=== PATIENT | female | born 1975 | race Hispanic/Latino ===

== ENCOUNTER 2016-06-26 11:30 | Inpatient (IN) | payer MEDICAID ==
[~2016-06-26] VITALS: Ht 198.1 cm; Wt 100.3 kg
[~2016-06-26 11:30] MED LIST: ALPRAZOLAM0.5 MG PO
[2016-06-26 11:39] VITALS: BP 105/66; PULSE 74; RESP 16; O2SAT 96
[2016-06-26] MEDS ORDERED: LEVO25TA2 PO (11:57)
[2016-06-26 12:14] LABS: BASOPHILS % (AUTO) 0.3 % (0-3); EOSINOPHILS % (AUTO) 1.6 % (0-5); MONOCYTES % (AUTO) 5.6 % (4-12); NEUTROPHILS % (AUTO) 64.5 % (40-74); Platelet Count 246 bil/L (150-400)
--- NOTE | 2016-06-26 12:28 | ED.REPORT ---
HPI-General Illness Date of Service Jun 26, 2016 ED Provider: Dr. Ricci Pt is a healthy 41 y/o female w/ a hx of hypothyroid presenting to the ED c/o epigastric abdominal pain with radiation to the back onset 3 days ago. She had somewhat more alcohol the day prior to the onset of her pain than she normally has. She c/o associated nausea. Pt denies vomiting, diarrhea, fever, chills. She stopped taking her levothyroxine 1 month ago and has been experiencing lightheadedness and palpitations and subsequently restarted them and has been feeling better. She does not drink much alcohol. She denies illicit drug use. She denies out of country travel or sick contacts. Nursing Notes Stated Complaint: CHEST/ABDOMINAL PAIN,SHORTNESS OF BREATH Chief Complaint: Female Abdominal Pain Nursing Notes Reviewed: Yes Allergies: Coded Allergies: amoxicillin (Verified Allergy, Unknown, 04/25/15) Scheduled Levothyroxine (Synthroid) 25 Mcg Tablet 25 MCG PO DAILY Scheduled PRN Alprazolam (Alprazolam) 0.5 Mg Tablet 0.25-0.5 MG PO DAILY PRN PRN For Anxiety Ibuprofen (Ibuprofen) 800 Mg Tablet 800 MG PO TID PRN PRN Headache General Time Seen by MD: 13:51 Chief Complaint Abdominal pain Hx Obtained From: Patient Arrived By: Walk-in Sudden in Onset?: No Symptom Duration: Since onset Location: : Abdomen Quality: Painful Severity: Current: Moderate Severity: Maximum: Moderate Past Medical History Past Medical History Hypothyroid Hx headaches Past Surgical History none Family History noncontributory Smoking History Never Smoker Social History Alcohol Use: "Social" Drug Use: Denies drug use Other Social History: Good social support, Local resident Ambulatory Status Independent Review of Systems Full Review of Systems Constitutional: Denies: Chills, Fever Respiratory: Denies: Non-productive cough, Shortness of breath Cardiovascular: Reports: Palpitations, Denies: Chest pain, Dyspnea on exertion GI: Reports: Abdominal pain, Nausea, Denies: Constipation, Diarrhea, Vomiting Musculoskeletal: Reports: Back pain, Denies: Neck pain Neurologic: Reports: Lightheaded Complete sys rev & neg: except as marked. Physical Exam Vital Signs Vital Signs Date Time Temp Pulse Resp B/P Pulse Ox O2 Delivery O2 Flow Rate FiO2 06/26/16 14:51 36.3 60 16 110/74 97 Room Air 06/26/16 11:39 36.4 74 16 105/66 96 Room Air Initial VS: Reviewed, Vital signs normal Head / Eyes: Atraumatic, Normocephalic, PERRL ENT: Mucous membranes moist, Conjunctiva normal, No scleral icterus Neck: Supple, Full range of motion Respiratory: Breath sounds normal, Clear to auscultation, No respiratory distress Cardiovascular: Regular rate & rhythm, Heart sounds normal, Intact distal pulses Extremities: Vascular intact, Neuro intact, No swelling, No tenderness Skin: Warm, Dry, No cyanosis Neurologic: Alert, Oriented, Nonfocal Psychiatric: Mood/affect normal, Behavior normal, Normal thought content General/Constitutional: Awake, Alert, No acute distress, Cooperative, Not toxic appearing Abdomen: Atraumatic, Soft, No guarding, No rebound, No distention, No palpable mass Moderate tenderness of the LUQ and epigastrium with mild tenderness to the RUQ. No focal tenderness over gallbladder, no cvat, no lower quadrant tenderness Interpretation & Diagnostics Interpretation & Diagnostics: US abdomen: IMPRESSION: No gallstones are seen. The gallbladder demonstrates a normal sonographic appearance. No biliary dilatation is seen. Tenderness is noted by the principal associate within the region of the pancreas, which is consistent with the given history. Note: Concordant preliminary findings given by the principal associate upon the completion of the examination to Dr. Singh at 1545 [place] time on June 26, 2016. Dictated by: Luke Fan M.D. on 06/26/2016 at 15:03 Approved by: Luke Fan M.D. on 06/26/2016 at 15:05 Lab Results Interpretation Result Diagram: 06/26/16 1200 06/26/16 1200 Test 06/26/16 12:00 White Blood Count 6.3th/mm3 (3.8-10.1) Red Blood Count 4.90mil/mm3 (3.90-5.20) Hemoglobin 14.7g/dL (12.0-15.6) Hematocrit 44.6% (35.0-46.0) Mean Corpuscular Volume 91.0fL (81-100) Mean Corpuscular Hemoglobin 30.0pg (27.0-35.0) Mean Corpuscular Hemoglobin Concent 33.0% (32.0-37.0) Red Cell Distribution Width 13.2% (12.3-15.4) Platelet Count 246bil/L (150-400) Neutrophils (%) (Auto) 64.5% (40-74) Lymphocytes (%) (Auto) 27.8% (14-46) Monocytes (%) (Auto) 5.6% (4-12) Eosinophils (%) (Auto) 1.6% (0-5) Basophils (%) (Auto) 0.3% (0-3) Hold Urine Received (Received) Sodium Level 138mEq/L (134-144) Potassium Level 4.0mEq/L (3.5-5.2) Chloride Level 101mEq/L (97-108) Carbon Dioxide Level 22mmol/L (18-29) Blood Urea Nitrogen 7mg/dL (6-24) Creatinine 0.57mg/dL (0.57-1.00) Estimat Glomerular Filtration Rate 168mL/min (>59) Glucose Level 87mg/dL (60-99) Calcium Level 9.2mg/dL (8.5-10.1) Magnesium Level 2.0mg/dL (1.6-2.6) Total Bilirubin 0.8mg/dL (0.0-1.2) Aspartate Amino Transf (AST/SGOT) 19U/L (0-50) Alanine Aminotransferase (ALT/SGPT) 12U/L (0-32) Alkaline Phosphatase 57U/L (25-150) Total Protein 7.9g/dL (6.4-8.4) Albumin 4.4g/dL (3.4-5.0) Triglycerides Level 97mg/dL (0-149) Cholesterol Level 204mg/dL (100-199) LDL Cholesterol, Calculated 122.600mg/dL (0-99) VLDL Cholesterol 19.400mg/dL HDL Cholesterol 62mg/dL (>39) Cholesterol/HDL Ratio 3.29 (0.0-4.4) Lipase 343U/L (13-60) Lab Results Interpretation: Urine dip: trace leukocytes otherwise negative ECG Interpretation Time: 12:55 Interpreted by: ED physician Normal ECG Interpretation: Normal ECG w/ rate of... (62), Normal rate, Normal sinus rhythm, No acute ischemic changes, Normal QRS, Normal axis, Normal intervals, Adequate tracing Re-Eval/Medical Decision Source of Hx: Old records Time of Eval: 15:40 Re-Evaluation/Progress Note: Pt rechecked. Informed pt of need for admission. Pt understands and agrees with plan for admission. All questions addressed. Consultation : Referral / Consult Name: Abraham Galvan MD Consulted With: Hospitalist Call Returned at: 15:41 Clocksmith: Will see patient, Agrees with eval, Agrees with plan, Accepts admit Counseled Regarding: Diagnosis, Lab results, Need for admission Discharge & Departure Primary Impression: Acute pancreatitis Pancreatitis type: unspecified pancreatitis type Qualified Code: K85.9 - Acute pancreatitis, unspecified Disposition: ADMITTED TO HOSPITAL Discharge Condition All VS Reviewed: Yes Condition: Stable Referrals: Josselyn Lemus MD (PCP) Scribe Attestation Portions of this note were transcribed by Paulo Flores. I, Dr. Ricci personally performed the history, physical exam and medical decision-making; I reviewed and confirmed the accuracy of the information in the transcribed note. Signed by Immanuel rFaser, 06/26/16 - 1400 copies to: Josselyn Lemus MD, Shawna L MD Jun 26, 2016 12:28 PAULO FLORES Jun 26, 2016 12:30
[2016-06-26] MEDS ORDERED: 0.9% Sodium Chloride 1,000 ML IV ONE (14:15)
[2016-06-26] MEDS ORDERED: Ondansetron 2 mg/mL 2 mL Inj IVPUSH PRN (14:15)
[2016-06-26] MEDS ORDERED: HYDROmorphone 0.5 mg/0.5 mL iSecure Syringe IVPUSH PRN (14:15)
[2016-06-26 14:51] VITALS: BP 110/74; PULSE 60; RESP 16; O2SAT 97
[2016-06-26] MEDS ORDERED: ALPR0.5T8 PO (14:51)
[2016-06-26] MEDS ORDERED: IBUP800T28 PO (14:51)
--- NOTE | 2016-06-26 16:06 | DRSVH ---
PROCEDURE: US ABDOMEN INDICATIONS: pancreatitis. rule out gallstones TECHNIQUE: Real-time scanning was performed of the abdominal and retroperitoneal organs, with image documentatio n. COMPARISON: [facility] Ultrasound [facility], US, ABDOMEN SONOGRAM, 06/29/2009, 23:30. FINDINGS: Liver length: 16.19 cm Gallbladder Wall Thickness: 0.90 mm CHD: 4.70 mm CBD: 6.70 mm Spleen length: 7.90 cm Right kidney length: 11.30 cm Left kidney length: 11.70 cm Aorta(Proximal): 2.09 cm Aorta(Mid): 1.57 cm Aorta(Distal): 1.66 cm RCIA: 1.00 cm LCIA: 8.20 mm Liver: Liver is normal in size and homogeneous in echotexture. Gallbladder: No findings of gallstones or sludge are seen. The gallbladder wall is not thickened, m easuring 3 mm or less. No specific pericholecystic fluid is seen. The sonographic Velasco sign is ne gative. Biliary ducts: Intrahepatic bile ducts are non-dilated. Extrahepatic bile duct caliber is normal. Normal is 6-7 mm or less in diameter, or 10 mm or less post-cholecystectomy. Pancreas: Visualized portions of the pancreas are sonographically normal. Spleen: Spleen is normal in size and homogeneous in echotexture. Kidneys: Kidneys are normal in size and echotexture. No hydronephrosis or nephrolithiasis. No chago d masses. A prominent column of Cristo can be seen on the right. Aorta: Visualized aorta is normal in caliber at less than 3 cm. Iliacs: Proximal common iliac arteries are normal in caliber at less than 2.5 cm. IVC: Intrahepatic inferior vena cava is patent. Miscellaneous: No free abdominal fluid. Tenderness is noted by the pedodontist overlying the midline of the abdomen near the area of the panc reas. IMPRESSION: No gallstones are seen. The gallbladder demonstrates a normal sonographic appearance. No biliary dilatation is seen. Tenderness is noted by the pedodontist within the region of the pancreas, which is consistent with th e given history. Note: Concordant preliminary findings given by the pedodontist upon the completion of the examination to Dr. Singh at 1545 [place] time on June 26, 2016. Dictated by: Luke Fan M.D. on 06/26/2016 at 15:03 Approved by: Luke Fan M.D. on 06/26/2016 at 15:05
[2016-06-26 16:30] VITALS: BP 112/69; PULSE 66; RESP 20; O2SAT 99
--- NOTE | 2016-06-26 16:33 | PCM.HPMED ---
Subjective Date of Service Jun 26, 2016 Primary Provider: Admitting Physician: Abraham Galvan MD Primary Care Physician: Josselyn Lemus MD Attending Physician: Abraham Galvan MD Chief Complaint: Abdominal pain History of Present Illness: This is a 41 female with past medical history of migraine headache, hypothyroidism, anxiety disorder presented to the hospital complaining allowed to abdominal pain that has been going on for approximately 3-5 days. Patient steadied the he had some nausea but no vomiting. He denied chest pain or shortness of breath. She took some ibuprofen before for abdominal pain with minimal relief. She stated she was taking approximately 2 cup of latte daily and noticed that would exacerbate of abdominal pain but she added taking "2 big latte daily" is part of her daily routine . She denies alcohol/ . She stopped taking her levothyroxine 1 month ago and has been experiencing lightheadedness and palpitations and subsequently restarted them and has been feeling better. ER work up shows lipase 343 Review of Systems: Review of systems is pertinent for abdominal pain, nausea, vomiting as described in history of present illness, otherwise a comprehensive review x 10 points is negative Allergies Coded Allergies: amoxicillin (Verified Allergy, Unknown, 04/25/15) Home Medications Scheduled Levothyroxine (Synthroid) 25 Mcg Tablet 25 MCG PO DAILY Scheduled PRN Alprazolam (Alprazolam) 0.5 Mg Tablet 0.25-0.5 MG PO DAILY PRN PRN For Anxiety Ibuprofen (Ibuprofen) 800 Mg Tablet 800 MG PO TID PRN PRN Headache PMH Hypothyroid Hx headaches Obesity Surgical History None Family History Family history reviewed and is noncontributory to present illness Social History Hx Alcohol Use: Yes ("social") Hx Substance Use: No Hx Tobacco Use: No Smoking Status: Never Smoker Exam Vital Signs Vital Sign - Last Date Time Temp Pulse Resp B/P Pulse Ox O2 Delivery O2 Flow Rate FiO2 06/26/16 14:51 36.3 60 16 110/74 97 Room Air Exam General/Constitutional: Overweight female, in bed comfortably. No acute distress HEENT: Atraumatic, Normocephalic, PERRL, sclerae is anicteric Mouth: Moist oropharyngeal mucosa Neck: Supple, Full range of motion, trachea is midline. No JVD Chest: Atraumatic, No respiratory distress, No retractions, No chest tenderness all deformity Lungs : Clear to auscultation bilaterally . No wheezing Cardiovascular: S1, S2, regular rate and rhythm, no gallop, no murmur Abdomen: Soft . Moderately tender on deep palpation at epigastric area. Velasco sign negative, No palpable mass Extremities: 1+ edema bilaterally, no cyanosis, no tenderness Skin: Warm, Dry, No cyanosis, no rash, no ulcers Neurologic: Alert, Oriented, grossly non focal Psychiatric: Mood/affect normal, Behavior normal, Normal thought content Lab and Diagnostics Result Diagram: 06/26/16 1200 06/26/16 1200 X-Rays, CTs and MRIs Abdominal ultrasound reviewed report noted : No gallstones are seen. The gallbladder demonstrates a normal sonographic appearance. No biliary dilatation is seen. Tenderness is noted by the postal service sectional center manager within the region of the pancreas, which is consistent with the given history. Assessment & Plan 1. Acute pancreatis Clinic medical problems Obesity Hypothyroidism Migraine Plan : Clear liquid diet and has tolerated. Zofran 4 mg IV every 6 hours as needed for nausea or vomiting Morphine sulfate 2 mg IV every 4 hours when necessary for pain. Normal saline 100 ml/hr for hydration. Patient denies and alcohol use. Her medication is levothyroxine, alprazolam, Ibuprofen and sporadic use of Vicodin/Percocet for migraine. Triglycerides are WNL and US is negative for gallstone. CT scan pending . She may need MRCP . Consider GI consult if ct negative Parental DVT prophylaxis. Pain Evaluation: Adequate Pain Control GI Prophylaxis: Proton Pump Inhibitor VTE Prophylaxis: Sub-Q Heparin (Unfractionated) Resuscitation Status: CPR: Attempt Resuscitation Time spent 55 minutes Abraham Galvan MD Jun 26, 2016 16:33
[2016-06-26] MEDS: 0.9% Sodium Chloride 1,000 ML IV SCH (16:38)
[2016-06-26] MEDS: Heparin 5,000 Unit/mL Inj SUBQ SCH (18:33)
[2016-06-26 21:50] VITALS: BP 108/70; PULSE 62; RESP 17; O2SAT 97
[2016-06-27] MEDS: Heparin 5,000 Unit/mL Inj SUBQ SCH ×3 (01:13→17:02)
[2016-06-27 02:01] VITALS: BP 103/67; PULSE 64; RESP 16; O2SAT 97
[2016-06-27] MEDS: 0.9% Sodium Chloride 1,000 ML IV SCH ×2 (02:28→12:33)
[2016-06-27 06:05] VITALS: BP 103/68; PULSE 58; RESP 16; O2SAT 100
[2016-06-27 07:57] LABS: BASOPHILS % (AUTO) 0.4 % (0-3); MONOCYTES % (AUTO) 8.3 % (4-12); Mean Corpuscular Hemoglobin 30.3 pg (27.0-35.0); Mean Corpuscular Volume 92.9 fL (81-100); NEUTROPHILS % (AUTO) 51.8 % (40-74); Platelet Count 217 bil/L (150-400)
[2016-06-27] MEDS: Pantoprazole 4 mg/mL 10 mL Inj IVPUSH SCH (07:59)
[2016-06-27] MEDS ORDERED: Polyethylene Glycol (PEG) 17 Gm Powder PO PRN (08:50)
[2016-06-27] MEDS: Senna-Docusate 8.6-50 mg Tablet PO SCH (09:37)
--- NOTE | 2016-06-27 12:02 | DRSVH ---
PROCEDURE: CT ABDOMEN AND PELVIS WITH CONTRAST ([id number]) INDICATIONS: Acute pancreatitis. Possible abscess. TECHNIQUE: After the administration of oral and intravenous contrast, 5 mm thick sections acquired from the diap hragms to the symphysis. 5 mm thick coronal and sagittal reformats were performed. For radiation do se reduction, the following was used: automated exposure control, adjustment of mA and/or kV accordi ng to patient size. COMPARISON: None. FINDINGS: Image quality: Excellent. ABDOMEN: Lung bases: Lung bases are clear. Heart size is normal. Solid organs: Liver and spleen are normal in size and enhancement. Gallbladder is within normal engel its. Biliary system is non-dilated. Pancreas enhances normally. Minimal fluid/fat stranding within the right anterior pararenal space and at the posterior aspect of the pancreatic neck is present. No adrenal nodules. Kidneys are normal in size and enhancement, without hydronephrosis. Peritoneum and bowel: Stomach, small bowel, and colon loops are normal in caliber and wall thickness . No free fluid or air. Nodes and vessels: No retroperitoneal or mesenteric adenopathy. Aorta and inferior vena cava are no rmal in caliber. The appendix is normal. Miscellaneous: No ventral hernias. PELVIS: Genitourinary: Bladder wall thickness is normal. An intrauterine device is present. Miscellaneous: No inguinal hernias or adenopathy. Bones: No suspicious bony lesions. No vertebral body compression fractures. IMPRESSION: 1. Findings suggestive of mild groove pancreatitis. No peripancreatic abscess. 2. Normal appendix. Dictated by: Eleazar Hyde M.D. on 06/27/2016 at 11:58 Approved by: Eleazar Hyde M.D. on 06/27/2016 at 12:00
[2016-06-27] MEDS: HYDROmorphone 1 mg/mL Inj IVPUSH PRN ×2 (12:14→20:08)
[2016-06-27 13:45] VITALS: BP 111/68; PULSE 60; O2SAT 97
--- NOTE | 2016-06-27 15:37 | PCM.PNMED ---
Subjective Date of Service Jun 27, 2016 Subjective Patient with continued abdominal pain overnight, but in 5-6 out of 10 this morning. Asking for Dilaudid so the morphine. No shortness of breath or chest pain. Noted intermittent short, nonexertional atypical left-sided chest pain that occurred yesterday but not currently feeling any. Exam Vital Signs Vital Sign - Last Date Time Temp Pulse Resp B/P Pulse Ox O2 Delivery O2 Flow Rate FiO2 06/27/16 13:45 36.6 60 111/68 97 Room Air 06/27/16 06:05 16 Intake and Output 06/26/16 06/26/16 06/27/16 Cumulative From/Thru 15:00 23:00 07:00 06/26/16 11:39 - 06/27/16 06:05 Intake Total 1000 ml 1905 ml 2905 ml Balance 1000 ml 1905 ml 2905 ml Intake Oral 600 ml 600 ml IV Total 1000 ml 1305 ml 2305 ml # Voids 2 2 Exam General/Constitutional: Overweight female, in bed comfortably. No acute distress HEENT: Atraumatic, Normocephalic, PERRL, sclerae is anicteric Mouth: Moist oropharyngeal mucosa Neck: Supple, Full range of motion, trachea is midline. No JVD Chest: Atraumatic, No respiratory distress, No retractions, No chest tenderness all deformity Lungs : Clear to auscultation bilaterally . No wheezing Cardiovascular: S1, S2, regular rate and rhythm, no gallop, no murmur Abdomen: Soft . Moderately tender on deep palpation at epigastric area. Velasco sign negative, No palpable mass Extremities: 1+ edema bilaterally, no cyanosis, no tenderness Skin: Warm, Dry, No cyanosis, no rash, no ulcers Neurologic: Alert, Oriented, grossly non focal Psychiatric: Mood/affect normal, Behavior normal, Normal thought content IVs and Medications Medications Reviewed: Medications were reviewed in detail Lab and Diagnostics Result Diagram: 06/27/16 0740 06/27/16 0740 X-Rays, CTs and MRIs Abdominal ultrasound reviewed report noted : No gallstones are seen. The gallbladder demonstrates a normal sonographic appearance. No biliary dilatation is seen. Tenderness is noted by the radio presenter within the region of the pancreas, which is consistent with the given history. CT abdomen 06/27 IMPRESSION: 1. Findings suggestive of mild groove pancreatitis. No peripancreatic abscess. 2. Normal appendix. Dictated by: Eleazar Hyde M.D. on 06/27/2016 at 11:58 Assessment & Plan 1. Acute pancreatis Clinic medical problems Obesity Hypothyroidism Migraine Plan : Clear liquid diet and advance as tolerated Zofran 4 mg IV every 6 hours as needed for nausea or vomiting Morphine sulfate changed to Dilaudid per patient request, conservative dosing with continued bowel regimen Normal saline 100 ml/hr for hydration, plan for weaning IV fluids tomorrow Patient denies and alcohol use. Her medication is levothyroxine, alprazolam, Ibuprofen and sporadic use of Vicodin/Percocet for migraine. Triglycerides are WNL and US is negative for gallstone. CT scan as noted with mild pancreatitis but no evidence of abscess or pseudocyst Improving lipase, if fails to continue to improve with conservative management may consider MRCP . Consider GI consult Parental DVT prophylaxis. Pain Evaluation: Adequate Pain Control GI Prophylaxis: Proton Pump Inhibitor VTE Prophylaxis: Sub-Q Heparin (Unfractionated) Resuscitation Status: CPR: Attempt Resuscitation Time spent 40 minutes spent with evaluation and management Abraham Agarwal DO Jun 27, 2016 15:37
[2016-06-27 17:52] VITALS: BP 106/70; PULSE 70; RESP 16; O2SAT 100
[2016-06-27 21:59] VITALS: BP 118/75; PULSE 65; RESP 17; O2SAT 96
[2016-06-28] MEDS: 0.9% Sodium Chloride 1,000 ML IV SCH ×3 (00:25→20:14)
[2016-06-28] MEDS: Heparin 5,000 Unit/mL Inj SUBQ SCH ×3 (00:26→16:32)
[2016-06-28 02:05] VITALS: BP 112/69; PULSE 77; RESP 16; O2SAT 98
[2016-06-28 06:00] VITALS: BP 112/70; PULSE 74; RESP 16; O2SAT 97
[2016-06-28] MEDS: HYDROmorphone 1 mg/mL Inj IVPUSH PRN (08:24)
[2016-06-28] MEDS: Ondansetron 2 mg/mL 2 mL Inj IVPUSH PRN (08:24)
[2016-06-28] MEDS: Pantoprazole 4 mg/mL 10 mL Inj IVPUSH SCH (08:25)
[2016-06-28 08:40] LABS: BASOPHILS % (AUTO) 0.4 % (0-3); EOSINOPHILS % (AUTO) 3.1 % (0-5); MONOCYTES % (AUTO) 7.1 % (4-12); Mean Corpuscular Volume 93.3 fL (81-100); NEUTROPHILS % (AUTO) 55.7 % (40-74); Platelet Count 214 bil/L (150-400)
[2016-06-28] MEDS ORDERED: Magnesium Chloride SR 64 mg ER24 Tablet PO ONE (10:40)
[2016-06-28 11:06] VITALS: BP 106/72; PULSE 66; RESP 16; O2SAT 97
--- NOTE | 2016-06-28 14:47 | PCM.PNMED ---
Subjective Date of Service Jun 28, 2016 Subjective Patient seen this morning with a pain rated 6 out of 10. Had a little bit of loose stool after by mouth intake yesterday. No fevers or chills, no chest pain or shortness of breath. Mildly clinically improving Exam Vital Signs Vital Sign - Last Date Time Temp Pulse Resp B/P Pulse Ox O2 Delivery O2 Flow Rate FiO2 06/28/16 11:06 36.6 66 16 106/72 97 Room Air Intake and Output 06/27/16 06/27/16 06/28/16 Cumulative From/Thru 14:59 22:59 06:59 06/26/16 11:39 - 06/28/16 06:10 Intake Total 2788 ml 1620 ml 7313 ml Balance 2788 ml 1620 ml 7313 ml Intake Oral 1680 ml 600 ml 2880 ml IV Total 1108 ml 1020 ml 4433 ml # Voids 5 2 9 # Bowel Movements 1 2 3 Exam General/Constitutional: Overweight female, in bed comfortably. No acute distress Neck: Supple, Full range of motion, trachea is midline. No JVD Chest: Atraumatic, No respiratory distress, No retractions, No chest tenderness all deformity Lungs : Clear to auscultation bilaterally . No wheezing Cardiovascular: S1, S2, regular rate and rhythm, no gallop, no murmur Abdomen: Soft . Moderately tender on deep palpation at epigastric area. No peritoneal symptoms no guarding No palpable mass Extremities: 1+ edema bilaterally, no cyanosis, no tenderness Skin: Warm, Dry, No cyanosis, no rash, no ulcers Neurologic: Alert, Oriented, grossly non focal Psychiatric: Mood/affect normal, Behavior normal, Normal thought content IVs and Medications Medications Reviewed: Medications were reviewed in detail Lab and Diagnostics Result Diagram: 06/28/1681406/28/1615 X-Rays, CTs and MRIs Abdominal ultrasound reviewed report noted : No gallstones are seen. The gallbladder demonstrates a normal sonographic appearance. No biliary dilatation is seen. Tenderness is noted by the it software engineer within the region of the pancreas, which is consistent with the given history. CT abdomen 06/27 IMPRESSION: 1. Findings suggestive of mild groove pancreatitis. No peripancreatic abscess. 2. Normal appendix. Dictated by: Eleazar Hyde M.D. on 06/27/2016 at 11:58 Assessment & Plan 1. Acute pancreatitis Chronic medical problems Obesity Hypothyroidism Migraine Plan : Diet advance to full liquid today Zofran 4 mg IV every 6 hours as needed for nausea or vomiting Morphine sulfate changed to Dilaudid per patient request 06/27, today have decreased frequency of Dilaudid and added [place] to titrate down off of Dilaudid with continued bowel regimen Normal saline 100 ml/hr for hydration, plan for weaning IV fluids tomorrow Patient denies any illicit drug or alcohol use. Her medication is levothyroxine , alprazolam, Ibuprofen and sporadic use of Vicodin/Percocet for migraine. Triglycerides are WNL and US is negative for gallstone. CT scan as noted with mild pancreatitis but no evidence of abscess or pseudocyst Improving lipase, if fails to continue to improve with conservative management may consider MRCP . Consider GI consult Parental DVT prophylaxis. Pain Evaluation: Adequate Pain Control GI Prophylaxis: Proton Pump Inhibitor VTE Prophylaxis: Sub-Q Heparin (Unfractionated) Resuscitation Status: CPR: Attempt Resuscitation Time spent 35 minutes spent with evaluation and management Abraham Agarwal DO Jun 28, 2016 14:47
[2016-06-28] MEDS: HYDROcodone-APAP 10-325 mg PO PRN ×2 (15:25→20:20)
[2016-06-28] MEDS ORDERED: HYDROmorphone 1 mg/mL Inj IVPUSH PRN (16:30)
[2016-06-28 18:04] VITALS: BP 114/71; PULSE 60; RESP 16; O2SAT 98
[2016-06-28] MEDS ORDERED: diphenhydrAMINE 25 mg Capsule PO PRN (19:35)
[2016-06-28 22:00] VITALS: BP 110/72; PULSE 61; RESP 17; O2SAT 94
[2016-06-29] MEDS: Heparin 5,000 Unit/mL Inj SUBQ SCH ×3 (00:35→16:40)
[2016-06-29 02:05] VITALS: BP 100/65; PULSE 65; RESP 16; O2SAT 95
[2016-06-29] MEDS: 0.9% Sodium Chloride 1,000 ML IV SCH (04:57)
[2016-06-29 05:48] VITALS: BP 100/74; PULSE 74; RESP 16; O2SAT 98
[2016-06-29 06:41] LABS: BASOPHILS % (AUTO) 0.4 % (0-3); MONOCYTES % (AUTO) 9.6 % (4-12); Mean Corpuscular Volume 92.2 fL (81-100); NEUTROPHILS % (AUTO) 41.6 % (40-74); Platelet Count 196 bil/L (150-400)
[2016-06-29] MEDS: Pantoprazole 4 mg/mL 10 mL Inj IVPUSH SCH (07:42)
[2016-06-29] MEDS: Senna-Docusate 8.6-50 mg Tablet PO SCH (07:42)
--- NOTE | 2016-06-29 08:20 | PCM.PNMED ---
Subjective Date of Service Jun 29, 2016 Subjective abdom pain 4/10 this AM, reports am GO - chronic also with some sob/gasping during sleep. likely needs outpt sleep study - acetaminophen for GO this AM, stop IVF - adv to soft diet. hopefully home tomorrow. no sob/cp now Exam Vital Signs Vital Sign - Last Date Time Temp Pulse Resp B/P Pulse Ox O2 Delivery O2 Flow Rate FiO2 06/29/16 05:48 36.8 74 16 100/74 98 Room Air Intake and Output 06/28/16 06/28/16 06/29/16 Cumulative From/Thru 15:00 23:00 07:00 06/26/16 11:39 - 06/29/16 05:50 Intake Total 2054 ml 1183 ml 10496 ml Balance 2054 ml 1183 ml 09347 ml Intake Oral 993 ml 3873 ml IV Total 1061 ml 1183 ml 6677 ml # Voids 6 4 19 # Bowel Movements 3 Exam General/Constitutional: Overweight female, in bed comfortably. No acute distress Neck: Supple, Full range of motion, trachea is midline. No JVD Chest: Atraumatic, No respiratory distress, No retractions, No chest tenderness all deformity Lungs : Clear to auscultation bilaterally . No wheezing Cardiovascular: S1, S2, regular rate and rhythm, no gallop, no murmur Abdomen: Soft . Moderately tender on deep palpation at epigastric area. No peritoneal symptoms no guarding No palpable mass Extremities: 1+ edema bilaterally, no cyanosis, no tenderness Skin: Warm, Dry, No cyanosis, no rash, no ulcers Neurologic: Alert, Oriented, grossly non focal Psychiatric: Mood/affect normal, Behavior normal, Normal thought content IVs and Medications Medications Reviewed: Medications were reviewed in detail Lab and Diagnostics Result Diagram: 06/29/1662406/29/16624 X-Rays, CTs and MRIs Abdominal ultrasound reviewed report noted : No gallstones are seen. The gallbladder demonstrates a normal sonographic appearance. No biliary dilatation is seen. Tenderness is noted by the telephone worker within the region of the pancreas, which is consistent with the given history. CT abdomen 06/27 IMPRESSION: 1. Findings suggestive of mild groove pancreatitis. No peripancreatic abscess. 2. Normal appendix. Dictated by: Eleazar Hyde M.D. on 06/27/2016 at 11:58 Assessment & Plan 1. Acute pancreatitis - improving Chronic medical problems Obesity Hypothyroidism Migraine Plan : Diet advance to full liquid --> now to soft diet Zofran 4 mg IV every 6 hours as needed for nausea or vomiting Morphine sulfate changed to Dilaudid per patient request 06/27, today have decreased frequency of Dilaudid and added [place] to titrate down off of Dilaudid with continued bowel regimen added acetaminophen for GO this AM, also offer coffee. Please do not exceed 4g of acetaminophen daily Normal saline 100 ml/hr for hydration, dc today Patient denies any illicit drug or alcohol use. Her medication is levothyroxine , alprazolam, Ibuprofen and sporadic use of Vicodin/Percocet for migraine. Triglycerides are WNL and US is negative for gallstone. CT scan as noted with mild pancreatitis but no evidence of abscess or pseudocyst Improving lipase, plan for home tomorrow Parental DVT prophylaxis. Pain Evaluation: Adequate Pain Control GI Prophylaxis: Proton Pump Inhibitor VTE Prophylaxis: Sub-Q Heparin (Unfractionated) Resuscitation Status: CPR: Attempt Resuscitation Time spent 35 minutes spent with eval and mgmt Abraham Aagrwal DO Jun 29, 2016 08:20
[2016-06-29] MEDS: HYDROcodone-APAP 10-325 mg PO PRN ×2 (11:46→16:44)
[2016-06-29 16:35] VITALS: BP 109/66; PULSE 65; RESP 20; O2SAT 97
[2016-06-29] MEDS: Ondansetron 2 mg/mL 2 mL Inj IVPUSH PRN (16:44)
[2016-06-29 20:30] VITALS: BP 100/63; PULSE 63; RESP 17; O2SAT 98
[2016-06-30] MEDS: Heparin 5,000 Unit/mL Inj SUBQ SCH ×2 (00:26→07:43)
[2016-06-30] MEDS: Ondansetron 2 mg/mL 2 mL Inj IVPUSH PRN (00:26)
[2016-06-30 00:30] VITALS: BP 111/71; PULSE 71; RESP 16; O2SAT 100
[2016-06-30] MEDS: HYDROcodone-APAP 10-325 mg PO PRN ×2 (00:59→11:19)
[2016-06-30 05:40] LABS: BASOPHILS % (AUTO) 0.3 % (0-3); MONOCYTES % (AUTO) 7.3 % (4-12); Mean Corpuscular Hemoglobin 30.1 pg (27.0-35.0); Mean Corpuscular Volume 91.5 fL (81-100); NEUTROPHILS % (AUTO) 49.7 % (40-74); Platelet Count 213 bil/L (150-400)
[2016-06-30 06:17] VITALS: BP 105/65; PULSE 75; RESP 16; O2SAT 100
[2016-06-30 06:18] VITALS: O2SAT 98
[2016-06-30] MEDS: Pantoprazole 4 mg/mL 10 mL Inj IVPUSH SCH (07:43)
[2016-06-30] MEDS: Senna-Docusate 8.6-50 mg Tablet PO SCH ×2 (07:50→11:20)
--- NOTE | 2016-06-30 11:18 | PCM.DIMED ---
Discharge Instructions Date of Service Jun 30, 2016 Dates of Hospitalization Jun 26, 2016 at 16:09 Discharge Diagnosis Discharge Diagnosis Acute pancreatitis, POA Chronic medical problems Obesity Hypothyroidism Migraine Medication Instructions Patient will be receiving a very short course of [place] 5 and a bowel regimen Test Results PROCEDURE: CT ABDOMEN AND PELVIS WITH CONTRAST (PNL-7102) INDICATIONS: Acute pancreatitis. Possible abscess. TECHNIQUE: After the administration of oral and intravenous contrast, 5 mm thick sections acquired from the diaphragms to the symphysis. 5 mm thick coronal and sagittal reformats were performed. For radiation dose reduction, the following was used : automated exposure control, adjustment of mA and/or kV according to patient size. COMPARISON: None. FINDINGS: Image quality: Excellent. ABDOMEN: Lung bases: Lung bases are clear. Heart size is normal. Solid organs: Liver and spleen are normal in size and enhancement. Gallbladder is within normal limits. Biliary system is non-dilated. Pancreas enhances normally. Minimal fluid/fat stranding within the right anterior pararenal space and at the posterior aspect of the pancreatic neck is present. No adrenal nodules. Kidneys are normal in size and enhancement, without hydronephrosis. Peritoneum and bowel: Stomach, small bowel, and colon loops are normal in caliber and wall thickness. No free fluid or air. Nodes and vessels: No retroperitoneal or mesenteric adenopathy. Aorta and inferior vena cava are normal in caliber. The appendix is normal. Miscellaneous: No ventral hernias. PELVIS: Genitourinary: Bladder wall thickness is normal. An intrauterine device is present. Miscellaneous: No inguinal hernias or adenopathy. Bones: No suspicious bony lesions. No vertebral body compression fractures. IMPRESSION: 1. Findings suggestive of mild groove pancreatitis. No peripancreatic abscess. 2. Normal appendix. Ultrasound IMPRESSION: No gallstones are seen. The gallbladder demonstrates a normal sonographic appearance. No biliary dilatation is seen. Tenderness is noted by the hogshead press operator within the region of the pancreas, which is consistent with the given history. Note: Concordant preliminary findings given by the hogshead press operator upon the completion of the examination to Dr. Singh at 15[address] [place] time on June 26, 2016. Dictated by: Luke Fan M.D. on 06/26/2016 at 15:03 Diet Low fat, Low Sodium Activity No restrictions Call your provider Fever or Chills, Shortness of breath, Bleeding, Vomitting, Excessive diarrhea Patient Instructions You have been diagnosed with acute pancreatitis and treated with hydration and nausea control including pain control. Please maintain a low-fat diet that have given you some pain medication, a very short course to be taken as needed for severe pain. You can also take acetaminophen or Tylenol up to 3000 mg daily as needed for pain control first before considering. Please realize that there is acetaminophen in the [place] 5 opioid tablet, there is 325 mg and so these be careful not to exceed more than 3000 mg daily of acetaminophen total Follow-up plan Please follow up with her primary care doctor Dr. Morales in 1-2 weeks. Or call earlier if you have any questions or worrisome concerns. V have chest pain shortness of breath, fever, chills or new focal weakness come directly to the ER. Follow-up Provider: GY MARLOW MD Follow-up with PCP in: 1 week Abraham Agarwal DO Jun 30, 2016 11:18
[2016-06-30] MEDS ORDERED: SENN-133 PO (11:20)
[2016-06-30] MEDS ORDERED: HYDR-4003 PO (11:20)
--- NOTE | 2016-06-30 11:25 | PCM.DC.MED ---
Discharge Summary Date of Service Jun 30, 2016 Dates of Hospitalization Date of Hospital Admission Jun 26, 2016 at 16:09 Date of Discharge: Jun 30, 2016 Providers: Admitting Physician: Abraham Galvan MD Primary Care Physician: Josselyn Lemus MD Attending Physician: Abraham Galvan MD Diagnosis at Time of Discharge Diagnosis at Time of Discharge Acute pancreatitis, POA Chronic medical problems Obesity Hypothyroidism Migraine Consultations None Procedures XRay, CTs & MRIs Acute pancreatitis, POA Chronic medical problems Obesity Hypothyroidism Migraine Medication Instructions Patient will be receiving a very short course of [place] 5 and a bowel regimen Test Results PROCEDURE: CT ABDOMEN AND PELVIS WITH CONTRAST ([id number]) INDICATIONS: Acute pancreatitis. Possible abscess. TECHNIQUE: After the administration of oral and intravenous contrast, 5 mm thick sections acquired from the diaphragms to the symphysis. 5 mm thick coronal and sagittal reformats were performed. For radiation dose reduction, the following was used : automated exposure control, adjustment of mA and/or kV according to patient size. COMPARISON: None. FINDINGS: Image quality: Excellent. ABDOMEN: Lung bases: Lung bases are clear. Heart size is normal. Solid organs: Liver and spleen are normal in size and enhancement. Gallbladder is within normal limits. Biliary system is non-dilated. Pancreas enhances normally. Minimal fluid/fat stranding within the right anterior pararenal space and at the posterior aspect of the pancreatic neck is present. No adrenal nodules. Kidneys are normal in size and enhancement, without hydronephrosis. Peritoneum and bowel: Stomach, small bowel, and colon loops are normal in caliber and wall thickness. No free fluid or air. Nodes and vessels: No retroperitoneal or mesenteric adenopathy. Aorta and inferior vena cava are normal in caliber. The appendix is normal. Miscellaneous: No ventral hernias. PELVIS: Genitourinary: Bladder wall thickness is normal. An intrauterine device is present. Miscellaneous: No inguinal hernias or adenopathy. Bones: No suspicious bony lesions. No vertebral body compression fractures. IMPRESSION: 1. Findings suggestive of mild groove pancreatitis. No peripancreatic abscess. 2. Normal appendix. Ultrasound IMPRESSION: No gallstones are seen. The gallbladder demonstrates a normal sonographic appearance. No biliary dilatation is seen. Tenderness is noted by the windlasser within the region of the pancreas, which is consistent with the given history. Note: Concordant preliminary findings given by the windlasser upon the completion of the examination to Dr. Singh at [address] [facility] on June 26, 2016. Brief History This is a 41 female with past medical history of migraine headache, hypothyroidism, anxiety disorder presented to the hospital complaining allowed to abdominal pain that has been going on for approximately 3-5 days. Patient steadied the he had some nausea but no vomiting. He denied chest pain or shortness of breath. She took some ibuprofen before for abdominal pain with minimal relief. She stated she was taking approximately 2 cup of latte daily and noticed that would exacerbate of abdominal pain but she added taking "2 big latte daily" is part of her daily routine . She denies alcohol/ . She stopped taking her levothyroxine 1 month ago and has been experiencing lightheadedness and palpitations and subsequently restarted them and has been feeling better. ER work up shows lipase 343 Hospital Course 1. Acute pancreatitis - improving Chronic medical problems Obesity Hypothyroidism Migraine Plan : Diet advance to full liquid --> now to soft diet, discharging today if tolerating regular diet Zofran 4 mg IV every 6 hours as needed for nausea or vomiting, clinically improved Morphine sulfate changed to Dilaudid per patient request 06/27, today have decreased frequency of Dilaudid and added [place] to titrate down off of Dilaudid with continued bowel regimen, not using IV pain medications now added acetaminophen for GO this AM, also offer coffee.aminophen daily Normal saline 100 ml/hr for hydration, dc today Patient denies any illicit drug or alcohol use. Her medication is levothyroxine , alprazolam, Ibuprofen and sporadic use of Vicodin/Percocet for migraine. Triglycerides are WNL and US is negative for gallstone. CT scan as noted with mild pancreatitis but no evidence of abscess or pseudocyst Improving lipase, plan for discharge home today with family with ejection to have a low-fat diet and use a bowel regimen with her short regimen of [place] 5 when necessary for pain along with follow-up with PCP in 2 weeks Exam Vital Signs (Last) Date Time Temp Pulse Resp B/P Pulse Ox O2 Delivery O2 Flow Rate FiO2 06/30/16 06:18 98 Room Air 06/30/16 06:17 36.8 75 16 105/65 2.00 Exam General/Constitutional: Overweight female, in bed comfortably. No acute distress Neck: Supple, Full range of motion, trachea is midline. No JVD Chest: Atraumatic, No respiratory distress, No retractions, No chest tenderness all deformity Lungs : Clear to auscultation bilaterally . No wheezing Cardiovascular: S1, S2, regular rate and rhythm, no gallop, no murmur Abdomen: Soft . Mild tender on deep palpation at epigastric area. No peritoneal symptoms no guarding No palpable mass Extremities: 1+ edema bilaterally, no cyanosis, no tenderness Skin: Warm, Dry, No cyanosis, no rash, no ulcers Neurologic: Alert, Oriented, grossly non focal Psychiatric: Mood/affect normal, Behavior normal, Normal thought content Test 06/26/16 12:00 06/26/16 17:28 06/27/16 07:40 06/29/16 06:25 Hold Urine Received (Received) Hemoglobin A1c 5.7% (4.8-5.6) Triglycerides Level 97mg/dL (0-149) Cholesterol Level 204mg/dL (100-199) LDL Cholesterol, Calculated 122.600mg/dL (0-99) VLDL Cholesterol 19.400mg/dL HDL Cholesterol 62mg/dL (>39) Cholesterol/HDL Ratio 3.29 (0.0-4.4) Magnesium Level 2.0mg/dL (1.6-2.6) Thyroid Stimulating Hormone (TSH) 3.340uIU/mL (0.450-4.500) Lipase 64U/L (13-60) Test 06/30/16 04:55 White Blood Count 6.0th/mm3 (3.8-10.1) Red Blood Count 3.99mil/mm3 (3.90-5.20) Hemoglobin 12.0g/dL (12.0-15.6) Hematocrit 36.5% (35.0-46.0) Mean Corpuscular Volume 91.5fL (81-100) Mean Corpuscular Hemoglobin 30.1pg (27.0-35.0) Mean Corpuscular Hemoglobin Concent 32.9% (32.0-37.0) Red Cell Distribution Width 12.7% (12.3-15.4) Platelet Count 213bil/L (150-400) Neutrophils (%) (Auto) 49.7% (40-74) Lymphocytes (%) (Auto) 39.5% (14-46) Monocytes (%) (Auto) 7.3% (4-12) Eosinophils (%) (Auto) 3.0% (0-5) Basophils (%) (Auto) 0.3% (0-3) Sodium Level 139mEq/L (134-144) Potassium Level 4.3mEq/L (3.5-5.2) Chloride Level 102mEq/L (97-108) Carbon Dioxide Level 25mmol/L (18-29) Blood Urea Nitrogen 6mg/dL (6-24) Creatinine 0.65mg/dL (0.57-1.00) Estimat Glomerular Filtration Rate 145mL/min (>59) Glucose Level 98mg/dL (60-99) Calcium Level 9.1mg/dL (8.5-10.1) Total Bilirubin 0.4mg/dL (0.0-1.2) Aspartate Amino Transf (AST/SGOT) 21U/L (0-50) Alanine Aminotransferase (ALT/SGPT) 14U/L (0-32) Alkaline Phosphatase 51U/L (25-150) Total Protein 6.5g/dL (6.4-8.4) Albumin 3.7g/dL (3.4-5.0) Discharge Medications Discharge Medications Levothyroxine (Synthroid) 25 Mcg Tablet 25 MCG PO DAILY (Reported) As needed Alprazolam (Alprazolam) 0.5 Mg Tablet 0.25-0.5 MG PO DAILY PRN PRN For Anxiety ( Reported) Hydrocodone-Acetaminophen 5-325 mg (Hydrocodone-Acetaminophen 5-325 mg) 1 Each Tablet 1 TABLET PO Q4H PRN PRN For Pain Prescribed by: ABRAHAM AGARWAL DO Ibuprofen (Ibuprofen) 800 Mg Tablet 800 MG PO TID PRN PRN Headache (Reported) Sennosides (Senna) 8.6 Mg Tablet 8.6 MG PO DAILY PRN PRN For Constipation Prescribed by: ABRAHAM AGARWAL DO Additional med instructions Patient will be receiving a very short course of [place] 5 and a bowel regimen Followup Plan Disposition: Home with family Follow-up plan Please follow up with her primary care doctor Dr. Morales in 1-2 weeks. Or call earlier if you have any questions or worrisome concerns. V have chest pain shortness of breath, fever, chills or new focal weakness come directly to the ER. Discharge Diet: Low fat, Low Sodium Discharge Activity: No restrictions Patient Instructions You have been diagnosed with acute pancreatitis and treated with hydration and nausea control including pain control. Please maintain a low-fat diet that have given you some pain medication, a very short course to be taken as needed for severe pain. You can also take acetaminophen or Tylenol up to 3000 mg daily as needed for pain control first before considering. Please realize that there is acetaminophen in the [place] 5 opioid tablet, there is 325 mg and so these be careful not to exceed more than 3000 mg daily of acetaminophen total Follow-up Provider: YG MARLOW MD Follow-up with PCP in: 1 week Time spent 35 minutes spent with discharge and patient management. Greater than 50% time spent [id number] with counseling Abraham Agarwal DO Jun 30, 2016 11:21
== END 2016-06-30 16:26 | disposition home or self-care (01) | DRG 282 ==
LOC: SED 11:30 → MOC 16:09
PROVIDERS: ADMIT Internal Medicine; ATTEND Internal Medicine
DX: K85.90 Acute pancreatitis without necrosis or infection, unspecified (principal); E03.9 Hypothyroidism, unspecified; E66.09 Other obesity due to excess calories; Z68.25 Body mass index [BMI] 25.0-25.9, adult